=== PATIENT | female | born 1950 | race Asian ===

== ENCOUNTER 2025-01-20 22:02 | Emergency (ER) | payer MEDICARE, MEDICAID ==
[~2025-01-20] VITALS: Ht 149.9 cm; Wt 45.5 kg
[2025-01-20 22:23] VITALS: TEMP 98.1
[2025-01-20 23:15] LABS: PLATELET COUNT (AUTO) 290 K/uL (150-450); RED BLOOD CELL COUNT(AUTO) 4.21 MIL/uL (4.00-5.20); RED CELL DISTRIBUTION WIDTH 13.0 % (11.5-14.5); WHITE BLOOD COUNT (AUTO) 5.9 K/uL (4.5-11.0)
[2025-01-20 23:17] LABS: ERYTHROCYTE SEDIMENTATION RATE 13 MM/HR (0-30)
[2025-01-20 23:21] LABS: CALCIUM, TOTAL 8.2 mg/dL (8.8-10.5); CREATININE 0.86 mg/dL (0.60-1.30); GLOMERULAR FILTR. RATE CALC > 60 mL/min (>60); GLUCOSE,RANDOM 156 mg/dL (70-110); SODIUM SERUM 142 mmol/L (136-145); UREA NITROGEN, BLOOD 12 mg/dL (7-18)
[2025-01-21 03:08] VITALS: BP 124/63; PULSE 55; RESP 15; O2SAT 96
== END 2025-01-21 04:07 | disposition home or self-care (01) ==
LOC: EMS 22:02
DX: I10 Essential (primary) hypertension (principal)
CPT/HCPCS: 80048; 85025; 85610; 85651; 99283